=== PATIENT | female | born 1980 | race American Indian/Alaskan Native ===

== ENCOUNTER 2017-11-24 15:32 | Emergency (ER) | payer OTHER ==
[2017-11-25] MEDS ORDERED: D50W (25GM) Syringe IV PRN (05:09)
--- NOTE | 2017-11-25 06:53 | Emergency Department Report ---
HPI - General Chief Complaint: High BP Time Seen by Provider: 11/25/17 06:12 - HPI HPI: 37-year-old female presents to the emergency department with a complaint of some high blood pressure that was found during a screening physical exam for a new job. She only has a history of some elevated blood pressure when she was in the past with some preeclampsia but nothing recently. She is about to see a new primary care physician this coming Friday. She denies any chest pain, headache, vision change, shortness of breath. She denies any tobacco or illicit drug use. She has not taken anything for symptoms prior to presentation. She does drink a lot of coffee and caffeinated drinks throughout the day. Sometimes she will eat fast food or processed food that has a higher salt content. ED Past Medical Hx - Past Medical History Additional medical history: preeclampsia - Surgical History Additional Surgical History: , R arm - Social History Smoking Status: Never Smoker Substance Use Type: Alcohol - Medications Home Medications: Home Medications Medication Instructions Recorded Confirmed Last Taken Type amLODIPine [Norvasc] 5 mg PO QDAY #30 tablet 11/25/17 Unknown Rx ED Review of Systems ROS: Stated complaint: HYPERTENSIVE Other details as noted in HPI Comment: All other systems reviewed and negative Constitutional: denies: chills, fever Eyes: denies: eye pain, eye discharge, vision change ENT: denies: ear pain, throat pain Respiratory: denies: cough, shortness of breath, wheezing Cardiovascular: denies: chest pain, palpitations Gastrointestinal: denies: abdominal pain, nausea, diarrhea Genitourinary: denies: urgency, dysuria, discharge Musculoskeletal: denies: back pain, joint swelling, arthralgia Skin: denies: rash, lesions Neurological: denies: headache, weakness, paresthesias Physical Exam - Physical Exam Vital Signs: Vital Signs 11/24/17 11/25/17 11/25/17 17:53 01:13 03:16 Temperature 98.5 F Pulse Rate 72 54 L 77 Respiratory 18 18 14 Rate Blood Pressure 172/109 Blood Pressure 174/108 [Left] O2 Sat by Pulse 100 99 100 Oximetry 11/25/17 11/25/17 11/25/17 03:20 03:30 03:45 Temperature 97.4 F L Pulse Rate 74 53 L 52 L Respiratory 16 16 18 Rate Blood Pressure 149/100 146/96 Blood Pressure 149/99 [Left] O2 Sat by Pulse 100 100 100 Oximetry 11/25/17 11/25/17 11/25/17 04:00 04:15 04:30 Temperature Pulse Rate 59 L 55 L 62 Respiratory 19 18 17 Rate Blood Pressure 146/96 158/95 125/93 Blood Pressure [Left] O2 Sat by Pulse 100 100 100 Oximetry 11/25/17 11/25/17 11/25/17 04:45 05:00 05:15 Temperature Pulse Rate 66 59 L 69 Respiratory 18 18 13 Rate Blood Pressure 132/101 132/101 124/98 Blood Pressure [Left] O2 Sat by Pulse 99 100 100 Oximetry 11/25/17 11/25/17 11/25/17 05:30 05:46 06:00 Temperature Pulse Rate 51 L 53 L 74 Respiratory 14 19 15 Rate Blood Pressure 124/98 147/95 147/95 Blood Pressure [Left] O2 Sat by Pulse 100 100 Oximetry Physical Exam: GENERAL: The patient is well-developed well-nourished. HENT: Normocephalic. Atraumatic. Patient has moist mucous membranes. EYES: Extraocular motions are intact. Pupils equal reactive to light bilaterally. NECK: Supple. Trachea is midline. CHEST/LUNGS: Clear to auscultation. There is no respiratory distress noted. HEART/CARDIOVASCULAR: Regular. There is no tachycardia. There is no murmur. ABDOMEN: Abdomen is soft, nontender. Patient has normal bowel sounds. There is no abdominal distention. SKIN: Skin is warm and dry. NEURO: The patient is awake, alert, and oriented. The patient is cooperative. The patient has no focal neurologic deficits. The patient has normal speech. MUSCULOSKELETAL: There is no tenderness or deformity. There is no limitation range of motion. There is no evidence of acute injury. ED Course Vital Signs 11/24/17 11/25/17 11/25/17 17:53 01:13 03:16 Temperature 98.5 F Pulse Rate 72 54 L 77 Respiratory 18 18 14 Rate Blood Pressure 172/109 Blood Pressure 174/108 [Left] O2 Sat by Pulse 100 99 100 Oximetry 11/25/17 11/25/17 11/25/17 03:20 03:30 03:45 Temperature 97.4 F L Pulse Rate 74 53 L 52 L Respiratory 16 16 18 Rate Blood Pressure 149/100 146/96 Blood Pressure 149/99 [Left] O2 Sat by Pulse 100 100 100 Oximetry 11/25/17 11/25/17 11/25/17 04:00 04:15 04:30 Temperature Pulse Rate 59 L 55 L 62 Respiratory 19 18 17 Rate Blood Pressure 146/96 158/95 125/93 Blood Pressure [Left] O2 Sat by Pulse 100 100 100 Oximetry 11/25/17 11/25/17 11/25/17 04:45 05:00 05:15 Temperature Pulse Rate 66 59 L 69 Respiratory 18 18 13 Rate Blood Pressure 132/101 132/101 124/98 Blood Pressure [Left] O2 Sat by Pulse 99 100 100 Oximetry 11/25/17 11/25/17 11/25/17 05:30 05:46 06:00 Temperature Pulse Rate 51 L 53 L 74 Respiratory 14 19 15 Rate Blood Pressure 124/98 147/95 147/95 Blood Pressure [Left] O2 Sat by Pulse 100 100 Oximetry ED Medical Decision Making - Lab Data Result diagrams: 11/25/17 06:56 11/25/17 06:56 - Medical Decision Making Labs show some mild anemia but the patient has a history of this. Very mild hypokalemia and patient given potassium chloride. She was given a 5 mg Norvasc for her elevated blood pressure. She'll be prescribed the same and she has an appointment with a primary care physician on Friday. She will keep a blood pressure log. We discussed dietary and lifestyle changes regarding caffeine and /or salt ingestion. No other physical complaints related to the elevated blood pressure. She appears safe for discharge home at this time. She will return to the ER with any worsening of her symptoms or any acute distress. - Differential Diagnosis essential hypertension, caffeine/salt ingestion, anxiety Critical Care Time: No Critical care attestation.: If time is entered above; I have spent that time in minutes in the direct care of this critically ill patient, excluding procedure time. ED Disposition Clinical Impression: Hypertension Qualifiers: Hypertension type: essential hypertension Qualified Code(s): I10 - Essential ( primary) hypertension Disposition: -01 TO HOME OR SELFCARE Is pt being admited?: No Condition: Stable Instructions: Hypertension (ED) Additional Instructions: Please try and stay away from caffeinated products and foods that are high in salt. Keep a blood pressure log. Follow-up with your primary care physician on Friday as previously scheduled. Return to the emergency Department with any worsening of her symptoms or any acute distress. I have started you on a low to medium dose of a blood pressure medication called Norvasc/amlodipine. This medication is taken once daily, usually in the morning. Prescriptions: amLODIPine [Norvasc] 5 mg PO QDAY #30 tablet Referrals: PRIMARY CARE, [Primary Care Provider] - 3-5 Days Forms: Work/School Release Form(ED) Time of Disposition: 07:36
[2017-11-25 07:09] LABS: Basophils # (Auto) 0.1 K/mm3 (0.0-0.1); Basophils % (Auto) 1.5 % (0.0-1.8); Eosinophils # (Auto) 0.2 K/mm3 (0.0-0.4); Hematocrit 29.5 % (30.3-42.9); Hemoglobin 9.7 gm/dl (10.1-14.3); Lymphocytes # (Auto) 2.4 K/mm3 (1.2-5.4); Mean Corpuscular HGB Conc 33 % (30-34); Monocytes # (Auto) 0.4 K/mm3 (0.0-0.8); Monocytes % (Auto) 5.9 % (0.0-7.3); Platelet Count 352 K/mm3 (140-440); Red Blood Count 4.21 M/mm3 (3.65-5.03); Red Cell Distribution Width 19.3 % (13.2-15.2)
[2017-11-25 07:15] LABS: Mean Corpuscular Hemoglobin 23 pg (28-32); Mean Corpuscular Volume 70 fl (79-97)
[2017-11-25] MEDS ORDERED: NOVOLOG SUB-Q SCH (07:30)
[2017-11-25 07:31] LABS: BUN/Creatinine Ratio 8; Blood Urea Nitrogen 5 mg/dL (7-17); Calcium 8.6 mg/dL (8.4-10.2); Hemolysis Index 3
[2017-11-25] MEDS ORDERED: NORVASC PO ONE (07:34)
[2017-11-25] MEDS ORDERED: K-DUR PO ONE (07:34)
[2017-11-25 07:51] VITALS: BP 152/98
== END 2017-11-25 09:14 | disposition home or self-care (01) ==
LOC: ED 15:32
DX: I10 Essential (primary) hypertension (principal)
CPT/HCPCS: 36415; 80048; 85025; 99283

== ENCOUNTER 2018-06-30 10:09 | Emergency (ER) | payer OTHER ==
[2018-06-30 10:47] LABS: Bilirubin,Urine NEG (Negative); Blood,Urine NEG (Negative); Color,Urine Yellow (Yellow); HCG Qualitative,Urine Negative (Negative); Mucus,Urine FEW /HPF; Urobilinogen,Urine < 2.0 mg/dL (<2.0)
[2018-06-30] MEDS ORDERED: TYLENOL PO ONE (14:02)
--- NOTE | 2018-06-30 14:02 | Emergency Department Report ---
ED Neuro Deficit HPI - General Chief Complaint: Headache Stated Complaint: DIZZY/HEADACHE/TINGLE ON (R) SIDE Time Seen by Provider: 06/30/18 13:50 Source: patient, RN notes reviewed Mode of arrival: Ambulatory Limitations: No Limitations - History of Present Illness Initial Comments: This is a 38-year-old female. Patient is not known to this provider previously. She endorses a past medical history of elevated blood pressure. She presents to the emergency room with 6 months of intermittent nonspecific neurologic symptoms. She gets intermittent right-sided cheek numbness, which is also periorbital, and intermittent. This is also associated with intermittent headache which is not sudden or thunderclap in nature, not maximal in intensity and is not associated with neck stiffness, vomiting or also vision. She also endorses right hand dysesthesias/numbness, and right foot numbness. The symptoms are intermittent over the past 6 weeks, are painless with the exception of mild headache, and do not radiate anywhere. She denies exacerbating or relieving factors. The current episode has been lasting for around 3 days. -: Gradual Location: right face, right arm, right leg Presenting Symptoms: Absent: Weak/Paralyzed One Side, Sudden, Severe Headache, Blurred/Loss of Vision, Facial Droop/Numbness, Unable to Speak Clearly, Altered Mental Status History of same: Yes Place: home Severity: mild Quality: numb Improves With: none, time On Anticoagulants: No Context: gradual onset Associated Symptoms: headaches. denies: confusion, chest pain, cough, diaphoresis, fever/chills, loss of appetite, malise, nausea/vomiting, vertigo, seizures, shortness of breath, syncope, weakness - Related Data Home Medications: Previous Rx's Medication Instructions Recorded Last Taken Type amLODIPine [Norvasc] 5 mg PO QDAY #30 tablet 11/25/17 Unknown Rx Allergies/Adverse Reactions: Allergies Allergy/AdvReac Type Severity Reaction Status Date / Time No Known Allergies Allergy Verified 11/25/17 05:17 ED Review of Systems ROS: Stated complaint: DIZZY/HEADACHE/TINGLE ON (R) SIDE Other details as noted in HPI Constitutional: denies: fever Eyes: denies: eye discharge, vision change ENT: denies: epistaxis Respiratory: denies: cough Cardiovascular: denies: chest pain Gastrointestinal: denies: abdominal pain Genitourinary: denies: dysuria Musculoskeletal: denies: arthralgia Skin: denies: lesions Neurological: headache, numbness, paresthesias Psychiatric: anxiety ED Past Medical Hx - Past Medical History Previous Medical History?: Yes Hx Hypertension: Yes Additional medical history: preeclampsia - Surgical History Past Surgical History?: Yes Additional Surgical History: , R arm - Social History Smoking Status: Never Smoker Substance Use Type: Alcohol - Medications Home Medications: Home Medications Medication Instructions Recorded Confirmed Last Taken Type amLODIPine [Norvasc] 5 mg PO QDAY #30 tablet 11/25/17 Unknown Rx ED Neuro Physical Exam - General Limitations: No Limitations General appearance: alert, in no apparent distress Suspected Stroke: No - Head Head exam: Present: atraumatic, normocephalic - Eye Eye exam: Present: normal appearance, PERRL, EOMI, other (visual acuity intact to finger counting, color perception, reading at a close distance). Absent: nystagmus - ENT ENT exam: Present: normal exam, normal orophraynx, mucous membranes moist, normal external ear exam - Neck Neck exam: Present: normal inspection, full ROM. Absent: tenderness, meningismus - Respiratory Respiratory exam: Present: normal lung sounds bilaterally. Absent: respiratory distress - Cardiovascular Cardiovascular Exam: Present: regular rate, normal rhythm, normal heart sounds. Absent: bradycardia, tachycardia, irregular rhythm, systolic murmur, diastolic murmur, rubs, gallop - GI/Abdominal GI/Abdominal exam: Present: soft, normal bowel sounds. Absent: distended, tenderness, guarding, rebound, rigid, pulsatile mass - Extremities Exam Extremities exam: Present: normal inspection, full ROM, normal capillary refill , other (2+ pulses noted in the bilateral upper, lower extremities. Compartments soft. No long bony tenderness. The pelvis is stable.). Absent: tenderness, pedal edema, joint swelling, calf tenderness - Back Exam Back exam: Present: normal inspection, full ROM. Absent: tenderness, CVA tenderness (R), paraspinal tenderness, vertebral tenderness - Neurological Exam Neurological exam: Present: alert, oriented X3, CN II-XII intact, normal gait ( there is no past-pointing. There is normal [id number]. There is negative pronator drift.), other (Extraocular movements intact. Tongue midline. No facial droop. Facial sensation intact to light touch in the V1, V2, V3 distribution bilaterally. 5 and 5 strength in 4 extremities.. Sensation is intact to light touch in 4 extremities.). Absent: motor sensory deficit - NIHSS Assessment Interval: Baseline 1a. Level of Consciousness: alert/keenly responsive 1b. LOC Questions: answers both correctly 1c. LOC Commands: performs tasks correctly 2. Best Gaze: normal 3. Visual: no visual loss 4. Facial Palsy: normal symmetrical movement 5b. Motor Arm Right: no drift 5a. Motor Arm Left: no drift 6a. Motor Leg Left: no drift 6b. Motor Leg Right: no drift 7. Limb Ataxia: absent 8. Sensory: normal 9. Best Language: no aphasia 10. Dysarthria: normal 11. Extinction/Inattention: no abnormality Total Score: 0 Stroke Severity: No Stroke Symptoms - Psychiatric Psychiatric exam: Present: normal affect, normal mood - Skin Skin exam: Present: warm, dry, intact, normal color. Absent: rash ED Course Vital Signs 06/30/18 06/30/18 10:15 13:08 Temperature 99.2 F Pulse Rate 75 74 Respiratory 16 16 Rate Blood Pressure 148/102 Blood Pressure 131/95 [Left] O2 Sat by Pulse 99 96 Oximetry - Reevaluation(s) Reevaluation #1: 06/30/18 16:[address] scan of the brain is negative. Patient resting comfortably and is in no distress. Repeat neurologic examination is unremarkable. Patient will be instructed to follow up with outpatient neurology. Return precautions were reviewed. - Lab Data Lab Results 06/30/18 Range/Units 10:34 Urine Color Yellow (Yellow) Urine Turbidity Slightly-cloudy (Clear) Urine pH 5.0 (5.0-7.0) Ur Specific [place] 1.012 (1.003-1.030) Urine Protein 100 mg/dl (Negative) mg/dL Urine Glucose (UA) Neg (Negative) mg/dL Urine Ketones Neg (Negative) mg/dL Urine Blood Neg (Negative) Urine Nitrite Neg (Negative) Urine Bilirubin Neg (Negative) Urine Urobilinogen < 2.0 (<2.0) mg/dL Ur Leukocyte Esterase Neg (Negative) Urine WBC (Auto) 1.0 (0.0-6.0) /HPF Urine RBC (Auto) 3.0 (0.0-6.0) /HPF U Epithel Cells (Auto) 8.0 (0-13.0) /HPF Urine Mucus Few /HPF Urine HCG, Qual Negative (Negative) - Radiology Data Radiology results: report reviewed, image reviewed - Medical Decision Making Differential diagnosis, including but not limited to: Guillain-Baldwin syndrome, multiple sclerosis, peripheral neuropathy Assessment and plan: 38-year-old female with multiple sensory neurologic complaints, not objectively demonstrated, intermittent over the past 4-5 months , with a current GCS of 15, with an NIH score of 0. She has no obvious cranial nerve deficits or motor/sensory deficits on my exam. Indeed, sensation is intact to touch, proprioception and light touch in the upper, lower extremities bilaterally. She is resting comfortably on her stretcher and in no distress. Noncontrast CT scan of the brain was interpreted as negative. I counseled the patient on the need to follow up with outpatient neurology. - Core Measures Measure Exclusions: not indicated - Thrombolytic Inclusion/Exclusion Thrombolytic Exclusion Criteria: Symptom Onset > 3 Hours Thrombolytic Contraindications: Rapidily Improving s/s Critical care attestation.: If time is entered above; I have spent that time in minutes in the direct care of this critically ill patient, excluding procedure time. ED Disposition Clinical Impression: Numbness Disposition: DC-01 TO HOME OR SELFCARE Is pt being admited?: No Does the pt Need Aspirin: No Condition: Stable Instructions: Peripheral Neuropathy (ED) Additional Instructions: Follow up with any of the listed neurology specialist within the next 2-4 weeks. Return to the ER right away with new pain, worsened pain, migration of pain, projectile vomiting, change in mental status, confusion, inability to tolerate liquid feeds. Take acetaminophen [id number], 650 mg, alternating with ibuprofen, 600 mg with food, every 6 hours. Referrals: ZHOU LUEVANO MD [Referring] - 3-5 Days LAVERNE LIMON MD [Staff Physician] - 3-5 Days THANH PELAEZ MD [Staff Physician] - 3-5 Days
--- NOTE | 2018-06-30 15:40 | Cat Scan Report ---
FINAL REPORT EXAM: CT HEAD/BRAIN WO CON HISTORY: numbness vision changes headache COMPARISON: None. TECHNIQUE: Multiple contiguous axial images were obtained from the skullbase to the vertex without administration of IV contrast. FINDINGS: Brain volume is normal for age. No hemorrhage, mass, mass effect, or midline shift. Ventricles are not enlarged. Normal basal cisterns. No pathologic extra-axial fluid collection. No evidence of acute infarct. No skull fracture. Paranasal sinuses and mastoid air cells are clear. Bilateral orbits are grossly intact. IMPRESSION: No acute intracranial abnormality.
[2018-06-30 16:25] VITALS: BP 140/89
== END 2018-06-30 16:20 | disposition home or self-care (01) ==
LOC: ED 10:09
DX: R20.0 Anesthesia of skin (principal); R51 Headache; I10 Essential (primary) hypertension
CPT/HCPCS: 70450; 81001; 81025; 99284

== ENCOUNTER 2019-03-19 13:56 | Emergency (ER) | payer OTHER ==
--- NOTE | 2019-03-19 14:32 | Event Note ---
ED Screening Note ED Screening Note: headache and dizziness for 2 days out of bp meds PCP will not call in because no insurance etoh no cig no drugs pmh htn psh arm tubal rx norvasc 5 daily lmp first February + This initial assessment/diagnostic orders/clinical plan/treatment(s) is/are subject to change based on patients health status, clinical progression and re- assessment by fellow clinical providers in the ED. Further treatment and workup at subsequent clinical providers discretion. Patient/guardian urged not to elope from the ED as their condition may be serious if not clinically assessed and managed. Initial orders include: 167/112 clonidine .2 reeval and dc home with Rx
[2019-03-19] MEDS ORDERED: CATAPRES ONE (14:36)
--- NOTE | 2019-03-19 15:27 | Emergency Department Report ---
ED General Adult HPI - General Chief complaint: High BP Stated complaint: HIGH BP Time Seen by Provider: 03/19/19 14:30 Source: patient Mode of arrival: Ambulatory Limitations: No Limitations - History of Present Illness Initial comments: Ms. Barnhart presents to the ER for refill of amlodipine. She is currently symptom- free. Severity scale (0 -10): 2 - Related Data Previous Rx's Medication Instructions Recorded Last Taken Type amLODIPine [Norvasc] 5 mg PO QDAY #30 tablet 11/25/17 Unknown Rx amLODIPine [Norvasc] 5 mg PO DAILY 90 Days #90 tab 03/19/19 Unknown Rx Allergies Allergy/AdvReac Type Severity Reaction Status Date / Time No Known Allergies Allergy Verified 11/25/17 05:17 ED Review of Systems ROS: Stated complaint: HIGH BP Other details as noted in HPI Constitutional: denies: malaise Respiratory: denies: shortness of breath Cardiovascular: denies: chest pain ED Past Medical Hx - Past Medical History Previous Medical History?: Yes Hx Hypertension: Yes Additional medical history: preeclampsia - Surgical History Past Surgical History?: Yes Additional Surgical History: , R arm, tubal ligation - Social History Smoking Status: Never Smoker Substance Use Type: Alcohol - Medications Home Medications: Home Medications Medication Instructions Recorded Confirmed Last Taken Type amLODIPine [Norvasc] 5 mg PO QDAY #30 tablet 11/25/17 Unknown Rx amLODIPine [Norvasc] 5 mg PO DAILY 90 Days #90 tab 03/19/19 Unknown Rx ED Physical Exam - General Limitations: No Limitations General appearance: alert, appears intoxicated - Head Head exam: Present: atraumatic, normocephalic - Eye Eye exam: Present: normal appearance - ENT ENT exam: Present: mucous membranes dry - Respiratory Respiratory exam: Absent: respiratory distress - Neurological Exam Neurological exam: Present: alert, oriented X3 - Psychiatric Psychiatric exam: Present: normal affect, normal mood - Skin Skin exam: Present: warm, dry, intact, normal color ED Course Vital Signs 03/19/19 14:30 Temperature 97.8 F Pulse Rate 67 Respiratory 16 Rate Blood Pressure 167/112 [Right] O2 Sat by Pulse 100 Oximetry ED Medical Decision Making - Medical Decision Making Medication refill: Prescription for 90 day Amlodipine provided Critical care attestation.: If time is entered above; I have spent that time in minutes in the direct care of this critically ill patient, excluding procedure time. ED Disposition Clinical Impression: Medication refill Disposition: DC-01 TO HOME OR SELFCARE Is pt being admited?: No Does the pt Need Aspirin: No Condition: Stable Prescriptions: amLODIPine [Norvasc] 5 mg PO DAILY 90 Days #90 tab
[2019-03-19 15:42] VITALS: BP 125/85
== END 2019-03-19 15:40 | disposition home or self-care (01) ==
LOC: ED 13:56
DX: I10 Essential (primary) hypertension (principal); Z76.0 Encounter for issue of repeat prescription; Z98.51 Tubal ligation status
CPT/HCPCS: 99282